=== PATIENT | female | born 1985 | race Caucasian/White ===

== ENCOUNTER 2024-03-03 20:19 | Emergency (ER) | payer OTHER ==
[2024-03-03 20:43] VITALS: BP 112/71; PULSE 76; RESP 16; TEMP 99.4; BMI 26.5
[2024-03-03] MEDS ORDERED: methylPREDNISolone NA SUCC 125 MG/2 ML VIAL ONE (20:44)
[2024-03-03] MEDS: methylPREDNISolone NA SUCC 125 MG/2 ML VIAL IVPUSH ONE (20:50)
== END 2024-03-03 22:06 | disposition home or self-care (01) ==
LOC: FER 20:19
PROC: 3E033GC Introduction of Other Therapeutic Substance into Peripheral Vein, Percutaneous Approach (ICD-10-PCS; principal; 2024-03-03)
DX: L50.9 Urticaria, unspecified (principal)
CPT/HCPCS: 99284-25